=== PATIENT | female | born 1990 ===

== ENCOUNTER 2025-02-01 12:16 | Outpatient (CLI) | payer OTHER | END 2025-02-01 12:18 | disposition home or self-care (01) | LOC: PRENATAL 12:16 | PROVIDERS: ATTEND Obstetrics & Gynecology Maternal & Fetal Medicine | DX: O44.00 Complete placenta previa NOS or without hemorrhage, unspecified trimester (principal); O34.219 Maternal care for unspecified type scar from previous cesarean delivery; Z3A.19 19 weeks gestation of pregnancy ==